=== PATIENT | female | born 1960 | race Caucasian/White ===

== ENCOUNTER 2018-03-27 14:07 | Inpatient (IN) | payer OTHER ==
[~2018-03-27] VITALS: Ht 149.9 cm; Wt 68.5 kg
[~2018-03-27 14:07] MED LIST: ASA81 MG; ATIVAN2 M1; CLORAZEPATE D3.75 MG; CYMBALTA60 MG; INDERAL LA80 MG; KETO10TA2 PO; LYRICA200 MG; METFORMIN HCL500 MG; MILLIPRED5 MG; PRAVASTATIN SOD40 MG; ZANTAC300 MG; [UNRECOGNIZED DRUG - OTHER]
[2018-04-01] MEDS ORDERED: FOSAMAX70 MG PO (11:01)
== END 2018-04-04 14:19 | DRG 470 ==
LOC: SURG 03-31 11:06 → O/R 03-31 11:06 → SURG 03-31 13:00 → EDSTATUS 03-31 14:05 → CIR.AMB 03-31 14:05 → SURG 03-31 14:05
PROVIDERS: Orthopaedic Surgery
PROC: 4A12X4Z Monitoring of Cardiac Electrical Activity, External Approach (ICD-10-PCS; 2018-03-31)
PROC: 0SR901Z Replacement of Right Hip Joint with Metal Synthetic Substitute, Open Approach (ICD-10-PCS; principal; 2018-03-31 13:00)
DX: M16.11 Unilateral primary osteoarthritis, right hip (principal); D62 Acute posthemorrhagic anemia; M85.451 Solitary bone cyst, right pelvis; M06.851 Other specified rheumatoid arthritis, right hip